=== PATIENT | male | born 1945 | race Caucasian/White ===

== ENCOUNTER 2017-11-06 08:37 | Observation (INO) ==
[2017-11-06] MEDS ORDERED: Ipratropium/Albuterol Neb 3 ML IH ONE (08:52)
[2017-11-06] MEDS ORDERED: predniSONE 20 MG TABLET PO ONE (08:52)
--- NOTE | 2017-11-06 08:55 | Emergency Department Note ---
Disposition Clinical Impression: Acute exacerbation of chronic obstructive airways disease Congestive heart failure Qualifiers: Heart failure type: unspecified Heart failure chronicity: acute Qualified Code( s): I50.9 - Heart failure, unspecified Disposition: Admitted As Inpatient Condition: Undetermined Forms: ED Satisfaction Letter Time of Disposition: 10:10 SOB HPI - General Chief Complaint: ED Shortness of Breath/Dyspnea Stated Complaint: MAC Time Seen by Provider: 11/06/17 08:43 Source: patient Mode of arrival: ambulatory Limitations: no limitations Nursing Notes Reviewed: Yes Vital Signs Reviewed: Yes - History of Present Illness 72-year-old male with history of COPD, hypertension, hyperlipidemia, arrives to the emergency department complaining of dyspnea over the past week. The patient has some associated wheezing. He has had an increase in use of inhalers and nebulizers. The patient states that he has been expressing some wheezing and a productive cough with yellow to white sputum. No hemoptysis. The patient denies any associated chest pain. The patient does have bilateral lower extremity edema without one being worse than the other. The patient denies any hemoptysis, unilateral leg swelling, recent surgeries or immobilizations, history of DVT or PE. The patient is able to speak in 3-5 word sentences. He is in mild respiratory distress. He denies any other complaints at this time. - Related Data Home Medications Medication Instructions Recorded Confirmed Albuterol Sulfate [Ventolin Hfa] 8 gm IH Q4H PRN 04/11/17 07/19/17 Aspirin 81 mg PO DAILY 04/11/17 07/19/17 Atorvastatin [Lipitor] 40 mg PO HS 04/11/17 07/19/17 Fluticasone/Salmeterol [Advair 2 puff IH BID 04/11/17 07/19/17 250-50 Diskus] Metoprolol Tartrate [Lopressor] 100 mg PO BID 04/11/17 07/19/17 Multivit-Min/FA/Lycopen/Lutein 1 each PO DAILY 04/11/17 07/19/17 [Centrum Silver Men Tablet] Plavix 75 mg PO DAILY 07/19/17 07/19/17 Allergies Allergy/AdvReac Type Severity Reaction Status Date / Time No Known Allergies Allergy Verified 11/06/17 08:41 All systems ED: reviewed and negative except as stated. Constitutional: Denies: fever, chills, weakness ENT ED: Denies: dysphagia Cardiovascular: Reports: dyspnea on exertion, edema. Denies: chest pain Respiratory: Reports: cough, dyspnea, wheezes, sputum production. Denies: hemoptysis Gastrointestinal: Denies: abdominal pain, nausea, vomiting Genitourinary: Denies: urgency, dysuria Musculoskeletal: Denies: back pain, neck pain Integumentary: Denies: rash Neurological: Denies: headache Past Medical History - Past Medical History Attestation: Yes The following information was validated with the patient. Source: patient, old records reviewed Medical history: Reports: COPD, coronary artery disease, hyperlipidemia, hypertension Surgical history: Reports: non-contributory Psychiatric history: Reports: no psych history - Social History Smoking Status: Former smoker Smokeless Tobacco Status: No Alcohol use: Reports: none Drug use: Reports: none Physical Exam - General Limitations: no limitations General appearance: alert, in distress (mild) - Head Head exam: atraumatic, normocephalic, normal inspection - Eye Eye exam: Present: normal appearance, PERRL, EOMI - ENT ENT exam: normal exam, normal oropharynx, mucous membranes moist - Neck Neck exam: Present: normal inspection, full ROM, trachea midline - Chest Chest inspection: Present: normal inspection, symmetric chest wall rise - Respiratory Respiratory exam: Present: respiratory distress (mild), wheezes (mild), other ( Coarse breath sounds.) - Cardiovascular Cardiovascular exam: Present: regular rate, normal rhythm, normal heart sounds - Abdominal Exam Abdominal exam: Present: soft, Non-Tender. Absent: tenderness, distention, guarding, rebound, rigidity - Extremities Exam Extremities exam: Present: normal inspection, full ROM, pedal edema (trace bilaterally). Absent: tenderness - Neurological Exam Neurological exam: Present: alert, oriented X3 - Skin Skin exam: Present: warm, dry, intact, normal color Course Vital Signs Temperature 98.3 F 11/06/17 08:40 Pulse Rate 75 11/06/17 08:40 Respiratory Rate 20 11/06/17 08:40 Blood Pressure 103/61 11/06/17 08:40 O2 Sat by Pulse Oximetry 92 11/06/17 08:40 Temperature 98.3 F 11/06/17 09:11 Pulse Rate 75 11/06/17 09:11 Respiratory Rate 19 11/06/17 09:20 Blood Pressure 103/61 11/06/17 09:11 O2 Sat by Pulse Oximetry 97 11/06/17 09:20 Oxygen Delivery Oxygen Delivery Room Air Shortness of Breath/Dyspnea - [facility] Narrative Medical decision making narrative: Patient's workup in the emergency department demonstrates findings consistent with COPD exacerbation. The patient is a mildly elevated BNP and an equivocal' s. He does have some pulmonary vascular congestion noted on chest x-ray. In addition the patient does have bilateral opacities consistent with possible pneumonia. He was given 500 mg azithromycin IV here in the emergency room as well as duo nebs and steroids. The patient's [id number] ultrasound revealed no acute process but examination was difficult to visualize the heart on echocardiogram secondary to body habitus. What was seen does not demonstrate global decreased motion. No obvious abnormalities noted. The patient was given 1 dose of 40 mg IV Lasix per recommendation from hospitalist upon admission. The patient was accepted to the hospitalist service, Dr. Urena. Patient made aware and agrees to plan. No further questions or concerns. - Lab Data Lab results reviewed: Yes I reviewed the patient's lab results. Result diagrams: 11/06/17 08:57 11/06/17 08:57 Lab Results 11/06/17 11/06/17 11/06/17 Range/Units 08:57 08:57 08:57 Hgb 12.2 L (12.9-16.9) g/dL Hct 36.3 L (37.5-50.1) % Plt Count 250 (140-400) K/mcL Sodium 137 (136-145) mEq/L Potassium 3.4 L (3.5-5.1) mEq/L Chloride 103 (98-107) mEq/L Carbon Dioxide 23 (23-29) mEq/L BUN 21 (8-23) mg/dL Creatinine 1.09 (0.70-1.30) mg/dL Est GFR ( Amer) > 60 (> 60) Est GFR (Non-Af Amer) > 60 (> 60) BUN/Creatinine Ratio 19 (6-26) Glucose 136 H (70-105) mg/dL Calculated Osmolality 289 (280-300) Calcium 8.7 (8.6-10.3) mg/dL Troponin I 0.03 (< 0.04) ng/mL B-Natriuretic Peptide 129 H (Less than 100) pg/mL - Radiology Data Radiology results reviewed: Yes I reviewed the patient's radiology results. Chest X-Ray 11/06/17 08:52 IMPRESSION: 1. Bilateral lower lobe airspace opacities, potentially pneumonia, aspiration, and/or atelectasis. 2. Pulmonary vascular congestion and/or chronic interstitial change. D/ / Didier Brown MD / Didier Brown MD Interpreting Provider: Didier Brown MD - EKG Data EKG attestation: Yes I reviewed and interpreted this EKG. EKG results narrative: Heart rate 75 beats for minute. Normal sinus rhythm. No ST elevation or ST depression noted. EKG is similar to EKG from 07/25/2004. No acute changes noted.
[2017-11-06 09:04] LABS: Hematocrit 36.3 % (37.5-50.1); Hemoglobin 12.2 g/dL (12.9-16.9); Platelet Count 250 K/mcL (140-400)
[2017-11-06 09:28] LABS: BUN/Creatinine Ratio 19 (6-26); Blood Urea Nitrogen 21 mg/dL (8-23); Calcium 8.7 mg/dL (8.6-10.3); Carbon Dioxide 23 mEq/L (23-29); Chloride 103 mEq/L (98-107); Glucose 136 mg/dL (70-105); Osmolality,Calculated 289 (280-300); Potassium 3.4 mEq/L (3.5-5.1); Sodium 137 mEq/L (136-145); eGFR For Non-African Americans > 60 (> 60)
[2017-11-06 09:29] LABS: Troponin I 0.03 ng/mL (< 0.04)
[2017-11-06] MEDS ORDERED: Furosemide 40 MG/4 ML VIAL IVP ONE (10:05)
[2017-11-06] MEDS ORDERED: Azithromycin 500 MG in D5% in Water 250 ML IVPB ONE (10:05)
[2017-11-06 10:34] LABS: Basophils % 0.3 %; Eosinophils # 0.3 K/mcL (0.0-0.6); Eosinophils % 2.5 %; Immature Granulocytes % 0.4 % (0-4); Mean Corpuscular HGB Conc 33.8 g/dL (31.6-35.5); Mean Corpuscular Hemoglobin 30.7 pg (28.0-33.3); Mean Corpuscular Volume 90.7 fL (83.0-100.0); Mean Platelet Volume 9.8 fL (9.4-12.4); Monocytes % 8.1 %; Neutrophils # 9.6 K/mcL (1.6-8.9); Red Blood Count 3.98 M/mcL (4.19-5.50); Red Cell Distribution Width 12.3 % (11.5-14.5); Segmented Neutrophils % 80.7 %
--- NOTE | 2017-11-06 10:49 | Emergency Department Note ---
Disposition Clinical Impression: Acute exacerbation of chronic obstructive airways disease Congestive heart failure Qualifiers: Heart failure type: unspecified Heart failure chronicity: acute Qualified Code( s): I50.9 - Heart failure, unspecified Disposition: Admitted As Inpatient Condition: Undetermined Referrals: Alfredo Salmon MD [Primary Care Provider] - General Adult HPI - General Chief complaint: ED Shortness of Breath/Dyspnea Stated complaint: MAC Time Seen by Provider: 11/06/17 08:43 Source: patient Mode of arrival: ambulatory Limitations: no limitations - History of Present Illness Pain Scale: 0 - Related Data Home Medications Medication Instructions Recorded Confirmed Albuterol Sulfate [Ventolin Hfa] 2 puff IH Q4H PRN 04/11/17 11/06/17 Aspirin 81 mg PO DAILY 04/11/17 11/06/17 Atorvastatin [Lipitor] 40 mg PO HS 04/11/17 11/06/17 Metoprolol Tartrate [Lopressor] 50 - 100 mg PO BID 04/11/17 11/06/17 Multivit-Min/FA/Lycopen/Lutein 1 each PO DAILY 04/11/17 11/06/17 [Centrum Silver Men Tablet] Allergies Allergy/AdvReac Type Severity Reaction Status Date / Time No Known Allergies Allergy Verified 11/06/17 08:41 Constitutional: Denies: fever, chills, weakness ENT ED: Denies: dysphagia Cardiovascular: Reports: dyspnea on exertion, edema. Denies: chest pain Respiratory: Reports: cough, dyspnea, wheezes, sputum production. Denies: hemoptysis Gastrointestinal: Denies: abdominal pain, nausea, vomiting Genitourinary: Denies: urgency, dysuria Musculoskeletal: Denies: back pain, neck pain Integumentary: Denies: rash Neurological: Denies: headache Past Medical History - Past Medical History Medical history: Reports: COPD, coronary artery disease, hyperlipidemia, hypertension Surgical history: Reports: non-contributory Psychiatric history: Reports: no psych history - Social History Smoking Status: Former smoker Smokeless Tobacco Status: No Alcohol use: Reports: none Drug use: Reports: none Physical Exam - General Limitations: no limitations General appearance: alert, in distress (mild) Course Vital Signs Temperature 98.3 F 11/06/17 08:40 Pulse Rate 75 11/06/17 08:40 Respiratory Rate 20 11/06/17 08:40 Blood Pressure 103/61 11/06/17 08:40 O2 Sat by Pulse Oximetry 92 11/06/17 08:40 Temperature 98.3 F 11/06/17 09:11 Pulse Rate 92 11/06/17 10:42 Respiratory Rate 21 11/06/17 10:42 Blood Pressure 136/53 11/06/17 10:42 O2 Sat by Pulse Oximetry 95 11/06/17 10:42 Oxygen Delivery Oxygen Delivery Nasal Cannula Medical Decision Making - Lab Data Result diagrams: 11/06/17 08:57 11/06/17 08:57 Lab Results 11/06/17 11/06/17 11/06/17 Range/Units 08:57 08:57 08:57 WBC 11.9 H (4.3-11.1) K/mcL RBC 3.98 L (4.19-5.50) M/mcL Hgb 12.2 L (12.9-16.9) g/dL Hct 36.3 L (37.5-50.1) % MCV 90.7 (83.0-100.0) fL MCH 30.7 (28.0-33.3) pg MCHC 33.8 (31.6-35.5) g/dL RDW 12.3 (11.5-14.5) % Plt Count 250 (140-400) K/mcL MPV 9.8 (9.4-12.4) fL Immature Gran % 0.4 (0-4) % Seg Neutrophils % 80.7 % Lymphocytes % 8.0 % Monocytes % 8.1 % Eosinophils % 2.5 % Basophils % 0.3 % Neutrophils # 9.6 H (1.6-8.9) K/mcL Lymphocytes # 1.0 (0.6-4.6) K/mcL Monocytes # 1.0 (0.0-1.3) K/mcL Eosinophils # 0.3 (0.0-0.6) K/mcL Basophils # 0.0 (0.0-0.2) K/mcL Sodium 137 (136-145) mEq/L Potassium 3.4 L (3.5-5.1) mEq/L Chloride 103 (98-107) mEq/L Carbon Dioxide 23 (23-29) mEq/L BUN 21 (8-23) mg/dL Creatinine 1.09 (0.70-1.30) mg/dL Est GFR ( Amer) > 60 (> 60) Est GFR (Non-Af Amer) > 60 (> 60) BUN/Creatinine Ratio 19 (6-26) Glucose 136 H (70-105) mg/dL Calculated Osmolality 289 (280-300) Calcium 8.7 (8.6-10.3) mg/dL Troponin I 0.03 (< 0.04) ng/mL B-Natriuretic Peptide 129 H (Less than 100) pg/mL Attestation Statement - Attestation Attestation: I examined this patient and my medical decision-making was reviewed with the Resident Physician. I agree with the documented findings, disposition and treatment plan as described except to the extent set forth below. Patient has a cough, wheezing resolved after administration of DuoNeb's. He has an equivocal evaluation for the possibility of heart failure. After DuoNeb' s, he has persistent bibasilar rales, has bibasilar infiltrates on his chest x- ray that could be edema. He has orthopnea, which is nonspecific. Has a nondiagnostic BNP. Does not have JVD, minimal if any hepatojugular reflux. I do not appreciate much in way of peripheral edema. He says he had heart failure once in the 1980s but has had no problems with it since. While I think the most likely source of his symptoms is a COPD exacerbation possibly secondary to mild pneumonia, I cannot rule out a contribution of what would essentially at this point be new onset heart failure. I was present and available for Dr. Lantigua's nondiagnostic point of care ultrasound. He will be admitted for further evaluation to include echocardiography.
--- NOTE | 2017-11-06 11:51 | Electrocardiograph Report ---
[place] [id number] Test Date: 2017-11-06 Pat Name: Jeffry Wetzel Department: Room: [facility] Gender: M Superintendent Operating: : 1945 Requested By: Bhavesh Urena Order Number: [id number] Reading MD: Carline Peace Measurements Intervals [place] Rate: 75 P: 63 ID: [id number] QRS: 64 QRSD: 89 T: 53 QT: 364 QTc: 407 Interpretive Statements Sinus rhythm Abnormal R-wave progression, early transition Electronically Signed On 11-06-2017 11:49:48 EDT by Carline Peace
[2017-11-06] MEDS ORDERED: Naloxone 0.4 MG/ML INJ IVP PRN (12:08)
[2017-11-06] MEDS ORDERED: Acetaminophen 325 MG TABLET PO PRN (12:08)
[2017-11-06] MEDS ORDERED: Ipratropium/Albuterol Neb 3 ML IH PRN (12:15)
--- NOTE | 2017-11-06 12:24 | Internal Med History&Physical ---
Date of Encounter: 11/06/17 Time of Encounter: 11:00 Internal Medicine - H&P: HPI Chief complaint: Cough and SOB Admitted From: Home Plans for Post Hospital Care: Home History of present illness: Mr. Wetzel is a 72 year old male presented to ER for cough and shortness of breath. Past medical history is significant for COPD, hypertension, CAD. Patient started to have shortness of breath and cough for several weeks. Symptoms getting worse gradually. The cough is productive, with whitish or yellowish sputum. Patient denies fever but complained of chills sometimes. Patient denies chest pain, he has mild nausea but no vomiting. Patient has generally exertional intolerance for about 1 year. He complaining of shortness of breath even going to bathroom. Patient cannot lay flat for sleeping and always sleep on recliner for several years. In the emergency room, chest x-ray shows infiltrates bilaterally and pulmonary vascular congestion. Patient was treated with DuoNeb, prednisone, azithromycin, and IV Lasix in the emergency room. His shortness of breath has improved after treatment. Past Med Surg Social Fam HX - Past Medical History Medical history: COPD, coronary artery disease, hyperlipidemia, hypertension Psychiatric history: no psych history - Past Surgical History Surgical History: non-contributory - Social History Smoking Status: Former smoker Smokeless Tobacco Status: No Alcohol use: none Drug use: none - Family History Mother History Unknown: Yes Internal Medicine - H&P: Meds Albuterol Sulfate [Ventolin Hfa] 2 puff IH Q4H PRN 04/11/17 [History] Aspirin 81 mg PO DAILY 04/11/17 [History] Atorvastatin [Lipitor] 40 mg PO HS 04/11/17 [History] Metoprolol Tartrate [Lopressor] 50 - 100 mg PO BID 04/11/17 [History] Multivit-Min/FA/Lycopen/Lutein [Centrum Silver Men Tablet] 1 each PO DAILY 04/11 [History] 3 Allergy/AdvReac Type Severity Reaction Status Date / Time No Known Allergies Allergy Verified 11/06/17 08:41 All Systems PM: A 10-system review of systems was performed and is negative for pertinent findings except as documented above in the HPI. - Constitutional Vitals: Temp Pulse Resp BP Pulse Ox 98.8 F 86 20 126/71 94 11/06/17 11:24 11/06/17 11:24 08/15/18 11:24 11/06/17 11:24 11/06/17 11:24 General appearance: Present: A&O X 3, no acute distress, answers questions appropriately - Head Head exam: Present: atraumatic, normocephalic - Eye Eye exam: Present: PERRL, conjuntiva pink, sclera anicteric Pupils: Present: PERRL - Neck Neck exam general surgery: Present: supple, trachea midline. Absent: lymphadenopathy - Respiratory Respiratory exam: Present: decreased breath sounds (Bilaterally), CTAB. Absent : accessory muscle use, rales, rhonchi, wheezes Additional comments: Coarse breath sounds bilaterally. - Cardiovascular Cardiovascular exam: Present: RRR, +S1, +S2. Absent: diastolic murmur, gallop, rubs, systolic murmur - GI/Abdominal GI/Abdominal exam: Present: normal bowel sounds, soft, no peritoneal signs. Absent: distended, tenderness - Extremities Exam Extremities exam: Present: warm, radial pulses palpable and symmetrical. Absent : calf tenderness, cyanotic, pedal edema - Neurological Exam Neurological exam: Present: CN II-XII intact, oriented X3, no focal deficits. Absent: pronater drift, facial droop, speech deficit - Skin Skin exam: Present: dry, intact Internal Med - H&P Results - Labs CBC & Chem 7: 11/06/17 08:57 11/06/17 08:57 - Assessment and plan (1) Community acquired pneumonia Current Visit: Yes Status: Acute Assessment and plan: Patient has cough, leukocytosis, chest x-ray shows bilateral opacity. Consider community acquired pneumonia. - We will treat patient with azithromycin and Rocephin - Follow sputum culture and mycoplasmas antibody - Symptomatic treatment. Qualifiers: Laterality: unspecified laterality Qualified Code(s): J18.9 - Pneumonia, unspecified organism (2) Hypertension Current Visit: Yes Status: Acute Assessment and plan: Continue home medications Qualifiers: Hypertension type: essential hypertension Qualified Code(s): I10 - Essential (primary) hypertension (3) CAD (coronary artery disease) Current Visit: Yes Status: Acute Assessment and plan: Patient had LHC in 2000, which shows 25-30% stenosis, no stent placed. Patient denies chest pain at this point. Continue home medications. Qualifiers: Coronary Disease-Associated Artery/Lesion type: [place] artery [place] vs. transplanted heart: [place] heart Associated angina: without angina Qualified Code(s): I25.10 - Atherosclerotic heart disease of [place] coronary artery without angina pectoris (4) DVT prophylaxis Current Visit: Yes Status: Acute Assessment and plan: Heparin subcutaneously (5) Acute exacerbation of chronic obstructive airways disease Current Visit: Yes Status: Acute Assessment and plan: Patient has increased cough, shortness of breath. History of COPD. Consider COPD exacerbation. - Continue antibiotic, steroid, and bronchodilator - Continue oxygen supportive treatment (6) Congestive heart failure Current Visit: Yes Status: Acute Assessment and plan: Patient has exertional intolerance. He has mild elevated BNP, however patient has morbid obesity, possibly falsely low. Chest x-ray shows pulmonary vascular congestion. Need to rule out CHF. - Place patient on fluid restriction, strict I and O, low-dose Lasix. - Check echocardiogram and adjust medication accordingly. Qualifiers: Heart failure type: unspecified Heart failure chronicity: unspecified Qualified Code(s): I50.9 - Heart failure, unspecified - Time Spent With Patient Total time spent is greater than 50% in coordination of care (as documented) at patient's floor/unit and/or counseling patient: 40 minutes Greater than 35 minutes
[2017-11-06] MEDS: cefTRIAXone 1,000 MG in Water for inj. (sterile) 20 ML 10 ML IVP SCH (15:01)
[2017-11-06] MEDS: Ipratropium/Albuterol Neb 3 ML IH SCH ×2 (15:36→22:28)
[2017-11-06] MEDS: *HR* Heparin 5,000 UNIT/ML VIAL SQ SCH (17:44)
[2017-11-06] MEDS ORDERED: Perflutren Lipid Microsphere 1.3 ML in 0.9 % Sodium Chloride 8.7 ML IVP ONE (20:51)
[2017-11-07] MEDS: Ipratropium/Albuterol Neb 3 ML IH SCH ×4 (03:39→22:49)
[2017-11-07] MEDS: *HR* Heparin 5,000 UNIT/ML VIAL SQ SCH ×2 (06:34→18:42)
[2017-11-07 06:51] LABS: Basophils % 0.1 %; Eosinophils % 0.1 %; Hematocrit 34.5 % (37.5-50.1); Hemoglobin 11.9 g/dL (12.9-16.9); Immature Granulocytes % 0.6 % (0-4); Lymphocytes # 1.2 K/mcL (0.6-4.6); Mean Corpuscular HGB Conc 34.5 g/dL (31.6-35.5); Mean Corpuscular Hemoglobin 31.1 pg (28.0-33.3); Mean Corpuscular Volume 90.1 fL (83.0-100.0); Mean Platelet Volume 9.6 fL (9.4-12.4); Monocytes # 1.1 K/mcL (0.0-1.3); Monocytes % 7.4 %; Neutrophils # 12.2 K/mcL (1.6-8.9); Platelet Count 280 K/mcL (140-400); Red Blood Count 3.83 M/mcL (4.19-5.50); Red Cell Distribution Width 12.3 % (11.5-14.5); Segmented Neutrophils % 83.8 %
[2017-11-07 07:01] LABS: BUN/Creatinine Ratio 26 (6-26); Blood Urea Nitrogen 32 mg/dL (8-23); Calcium 8.6 mg/dL (8.6-10.3); Carbon Dioxide 24 mEq/L (23-29); Chloride 104 mEq/L (98-107); Cholesterol 113 mg/dL (< 200); Glucose 154 mg/dL (70-105); HDL Cholesterol 38 mg/dL (40-59); LDL Cholesterol,Calculated 64 mg/dL (0-99); Osmolality,Calculated 298 (280-300); Potassium 3.1 mEq/L (3.5-5.1); Sodium 139 mEq/L (136-145); Triglycerides 56 mg/dL (< 150); eGFR For Non-African Americans 58 (> 60)
[2017-11-07] MEDS: Aspirin 81 MG TAB.CHEW PO SCH (10:31)
[2017-11-07] MEDS: Multivit/Ca/Min/Fe/FA 1 TAB TABLET PO SCH (10:31)
[2017-11-07] MEDS: predniSONE 20 MG TABLET PO SCH (10:31)
[2017-11-07] MEDS: cefTRIAXone 1,000 MG in Water for inj. (sterile) 20 ML 10 ML IVP SCH (10:32)
[2017-11-07] MEDS: Furosemide 20 MG/2 ML VIAL IVP SCH (10:32)
[2017-11-07] MEDS: Azithromycin 500 MG in D5% in Water 250 ML IVPB SCH (10:33)
--- NOTE | 2017-11-07 19:46 | Internal Med Progress Note ---
Hospitalist Progress Note - Encounter Date of Encounter: 11/07/17 Time of Encounter: 11:00 - Subjective Interval History: Patient with shortness of breath requiring supplemental oxygenation secondary to community acquired pneumonia with COPD exacerbation. - Exam Vitals: Temp Pulse Resp BP Pulse Ox 98.0 F 76 18 128/66 95 11/07/17 16:29 11/07/17 16:29 11/07/17 16:29 11/07/17 16:29 11/07/17 16:29 Exam: Gen.: Nonacute distress, alert and oriented 3 ENT: Mucosal membranes moist Respiratory: Lungs are clear to auscultation bilaterally without any wheezing rhonchi or rales Cardiovascular: Normal S1 and S2 regular rate rhythm no murmurs rubs or gallops Abdomen: Soft, nontender and nondistended with positive bowel sounds Extremities: No lower extremity edema Skin: Normal color - Assessment and Plan (1) Community acquired pneumonia Current Visit: Yes Status: Acute Assessment and Plan: Patient has cough, leukocytosis, chest x-ray shows bilateral opacity. Will continue azithromycin and Rocephin (2) Acute exacerbation of chronic obstructive airways disease Current Visit: Yes Status: Acute Assessment and Plan: Patient has increased cough, shortness of breath. Continue antibiotic, steroid, and bronchodilator Continue oxygen supplementation to wean O2 as tolerated (3) Hypertension Current Visit: Yes Status: Acute Assessment and Plan: Continue home medications (4) CAD (coronary artery disease) Current Visit: Yes Status: Acute Assessment and Plan: Patient had LHC in 2000, which shows 25-30% stenosis, no stent placed. Continue home medications. (5) DVT prophylaxis Current Visit: Yes Status: Acute Assessment and Plan: Heparin subcutaneously - Time Spent with Patient Total time spent is greater than 50% in coordination of care (as documented) at patient's floor/unit and/or counseling patient: Internal Medicine: Result - Labs CBC & Chem 7: 11/07/17 05:53 11/07/17 05:53 Labs: Short CBC 11/07/17 Range/Units 05:53 WBC 14.5 H (4.3-11.1) K/mcL Hgb 11.9 L (12.9-16.9) g/dL Hct 34.5 L (37.5-50.1) % Plt Count 280 (140-400) K/mcL Neutrophils # 12.2 H (1.6-8.9) K/mcL BMP 11/07/17 05:53 Sodium 139 Potassium 3.1 L Chloride 104 Carbon Dioxide 24 BUN 32 H Creatinine 1.23 Glucose 154 H Calcium 8.6 - Impressions Impressions Echocardiogram 11/06/17 12:16 Impressions: LVEF 60%. Mild left ventricular diastolic dysfunction. Definity echo contrast was used. RV is not well visualized. No significant valvular dysfunction. No pulmonary hypertension. Left Ventricular Wall Motion: Rest Echo Findings All wall segments showed normal motion. Findings: Study Quality * Technically challenging due to body habitus. ECG Findings * Normal sinus rhythm. Left Ventricle * LVEF 60%. * Mild left ventricular diastolic dysfunction. * Definity echo contrast was used. * Normal appearing LV chamber size and wall thickness. Right Ventricle * RV is not well visualized. Left Atrium * Mildly dilated left atrium. Right Atrium * Normal right atrial size. Aortic Valve * No aortic regurgitation. * Aortic valve not well visualized. * No aortic stenosis. Mitral Valve * No mitral regurgitation. * Normal mitral valve structure. * No mitral stenosis. Tricuspid Valve * Tricuspid valve not well visualized. * Trace tricuspid regurgitation. * Estimated RA pressure is 3 mmHg. * Estimated RVSP is 13 mmHg. * No pulmonary hypertension. Pulmonic Valve * Pulmonic valve is not well visualized. * No pulmonic stenosis. * No pulmonic regurgitation. Pulmonary Artery * Pulmonary artery not well visualized. Aorta * Not well visualized. Pericardium * There is no pericardial effusion present. Interatrial Septum * No evidence of PFO by color Doppler. IVC * Normal IVC dimensions and inspiratory collapse. Consult Discharge Plan - Plan Referrals: Alfredo Salmon MD [Primary Care Provider] - (1) Community acquired pneumonia Qualifiers: Laterality: unspecified laterality Qualified Code(s): J18.9 - Pneumonia, unspecified organism (3) Hypertension Qualifiers: Hypertension type: essential hypertension Qualified Code(s): I10 - Essential (primary) hypertension (4) CAD (coronary artery disease) Qualifiers: Coronary Disease-Associated Artery/Lesion type: [place] artery [place] vs. transplanted heart: [place] heart Associated angina: without angina Qualified Code(s): I25.10 - Atherosclerotic heart disease of [place] coronary artery without angina pectoris
[2017-11-08] MEDS: Ipratropium/Albuterol Neb 3 ML IH SCH ×4 (04:31→21:45)
[2017-11-08] MEDS: *HR* Heparin 5,000 UNIT/ML VIAL SQ SCH ×2 (05:18→17:59)
[2017-11-08] MEDS: Aspirin 81 MG TAB.CHEW PO SCH (08:42)
[2017-11-08] MEDS: predniSONE 20 MG TABLET PO SCH (08:42)
[2017-11-08] MEDS: Multivit/Ca/Min/Fe/FA 1 TAB TABLET PO SCH (08:42)
[2017-11-08] MEDS: Furosemide 20 MG/2 ML VIAL IVP SCH (08:42)
[2017-11-08] MEDS: cefTRIAXone 1,000 MG in Water for inj. (sterile) 20 ML 10 ML IVP SCH (08:43)
[2017-11-08] MEDS: Azithromycin 500 MG in D5% in Water 250 ML IVPB SCH (08:44)
[2017-11-08 10:28] LABS: Basophils % 0.2 %; Eosinophils # 0.1 K/mcL (0.0-0.6); Eosinophils % 0.4 %; Hematocrit 34.5 % (37.5-50.1); Hemoglobin 11.6 g/dL (12.9-16.9); Immature Granulocytes % 0.6 % (0-4); Lymphocytes # 1.2 K/mcL (0.6-4.6); Lymphocytes % 7.2 %; Mean Corpuscular HGB Conc 33.6 g/dL (31.6-35.5); Mean Corpuscular Hemoglobin 30.3 pg (28.0-33.3); Mean Corpuscular Volume 90.1 fL (83.0-100.0); Mean Platelet Volume 9.6 fL (9.4-12.4); Monocytes # 0.9 K/mcL (0.0-1.3); Monocytes % 5.4 %; Neutrophils # 14.1 K/mcL (1.6-8.9); Platelet Count 317 K/mcL (140-400); Red Blood Count 3.83 M/mcL (4.19-5.50); Red Cell Distribution Width 12.5 % (11.5-14.5); Segmented Neutrophils % 86.2 %
[2017-11-08 10:51] LABS: BUN/Creatinine Ratio 29 (6-26); Blood Urea Nitrogen 33 mg/dL (8-23); Calcium 9.1 mg/dL (8.6-10.3); Carbon Dioxide 25 mEq/L (23-29); Chloride 105 mEq/L (98-107); Glucose 205 mg/dL (70-105); Osmolality,Calculated 307 (280-300); Potassium 3.5 mEq/L (3.5-5.1); Sodium 142 mEq/L (136-145); eGFR For Non-African Americans > 60 (> 60)
--- NOTE | 2017-11-08 18:28 | Internal Med Progress Note ---
Hospitalist Progress Note - Encounter Date of Encounter: 11/08/17 Time of Encounter: 11:00 - Subjective Interval History: Patient still requiring supplemental oxygenation this morning due to hypoxia secondary to pneumonia/COPD exacerbation - Exam Vitals: Temp Pulse Resp BP Pulse Ox 99.0 F 79 18 123/76 95 11/08/17 15:03 11/08/17 15:03 11/08/17 16:56 11/08/17 15:03 11/08/17 16:56 Exam: Gen.: Nonacute distress, alert and oriented 3 ENT: Mucosal membranes moist Respiratory: Lungs are clear to auscultation bilaterally without any wheezing rhonchi or rales Cardiovascular: Normal S1 and S2 regular rate rhythm no murmurs rubs or gallops Abdomen: Soft, nontender and nondistended with positive bowel sounds Extremities: No lower extremity edema Skin: Normal color - Assessment and Plan (1) Community acquired pneumonia Current Visit: Yes Status: Acute Assessment and Plan: Patient has cough, leukocytosis, chest x-ray shows bilateral opacity. Will continue azithromycin and Rocephin (2) Acute exacerbation of chronic obstructive airways disease Current Visit: Yes Status: Acute Assessment and Plan: Patient has increased cough, shortness of breath. Continue antibiotic, steroid, and bronchodilator Continue oxygen supplementation to wean O2 as tolerated (3) Hypertension Current Visit: Yes Status: Acute Assessment and Plan: Continue home medications (4) CAD (coronary artery disease) Current Visit: Yes Status: Acute Assessment and Plan: Patient had LHC in 2000, which shows 25-30% stenosis, no stent placed. Continue home medications. (5) DVT prophylaxis Current Visit: Yes Status: Acute Assessment and Plan: Heparin subcutaneously - Time Spent with Patient Total time spent is greater than 50% in coordination of care (as documented) at patient's floor/unit and/or counseling patient: Internal Medicine: Result - Labs CBC & Chem 7: 11/08/17 09:54 11/08/17 09:54 Labs: Short CBC 11/08/17 Range/Units 09:54 WBC 16.3 H (4.3-11.1) K/mcL Hgb 11.6 L (12.9-16.9) g/dL Hct 34.5 L (37.5-50.1) % Plt Count 317 (140-400) K/mcL Neutrophils # 14.1 H (1.6-8.9) K/mcL [facility] 11/08/17 09:54 Sodium 142 Potassium 3.5 Chloride 105 Carbon Dioxide 25 BUN 33 H Creatinine 1.14 Glucose 205 H Calcium 9.1 Consult Discharge Plan - Plan Referrals: Alfredo Salmon MD [Primary Care Provider] - (1) Community acquired pneumonia Qualifiers: Laterality: unspecified laterality Qualified Code(s): J18.9 - Pneumonia, unspecified organism (3) Hypertension Qualifiers: Hypertension type: essential hypertension Qualified Code(s): I10 - Essential (primary) hypertension (4) CAD (coronary artery disease) Qualifiers: Coronary Disease-Associated Artery/Lesion type: [place] artery [place] vs. transplanted heart: [place] heart Associated angina: without angina Qualified Code(s): I25.10 - Atherosclerotic heart disease of [place] coronary artery without angina pectoris
[2017-11-09] MEDS: Ipratropium/Albuterol Neb 3 ML IH SCH ×3 (04:22→16:07)
[2017-11-09] MEDS: *HR* Heparin 5,000 UNIT/ML VIAL SQ SCH (05:47)
[2017-11-09 06:37] LABS: ABG Base Excess 1 mEq/L (-2 to 3); ABG HCO3 25 mEq/L (21-27); ABG Oxygen Saturation 63 % (95-98); ABG PCO2 36 mmHg (35-45); ABG PH 7.45 pH Units (7.32-7.45); ABG PO2 31 mmHg (85-104); ABG TCO2 26 mEq/L (20-26)
[2017-11-09 06:41] LABS: ABG Base Excess 2 mEq/L (-2 to 3); ABG HCO3 26 mEq/L (21-27); ABG Oxygen Saturation 92 % (95-98); ABG PCO2 35 mmHg (35-45); ABG PH 7.47 pH Units (7.32-7.45); ABG PO2 58 mmHg (85-104); ABG TCO2 27 mEq/L (20-26)
[2017-11-09] MEDS: Azithromycin 500 MG in D5% in Water 250 ML IVPB SCH (09:03)
[2017-11-09] MEDS: cefTRIAXone 1,000 MG in Water for inj. (sterile) 20 ML 10 ML IVP SCH (09:03)
[2017-11-09] MEDS: predniSONE 20 MG TABLET PO SCH (09:03)
[2017-11-09] MEDS: Multivit/Ca/Min/Fe/FA 1 TAB TABLET PO SCH (09:03)
[2017-11-09] MEDS: Furosemide 20 MG/2 ML VIAL IVP SCH (09:03)
[2017-11-09] MEDS: Aspirin 81 MG TAB.CHEW PO SCH (09:03)
[2017-11-09 10:34] LABS: Basophils # 0.1 K/mcL (0.0-0.2); Basophils % 0.4 %; Eosinophils # 0.1 K/mcL (0.0-0.6); Eosinophils % 0.9 %; Hematocrit 39.4 % (37.5-50.1); Immature Granulocytes % 1.1 % (0-4); Lymphocytes # 1.4 K/mcL (0.6-4.6); Lymphocytes % 9.9 %; Mean Corpuscular Hemoglobin 30.4 pg (28.0-33.3); Mean Corpuscular Volume 92.1 fL (83.0-100.0); Mean Platelet Volume 9.7 fL (9.4-12.4); Monocytes # 0.7 K/mcL (0.0-1.3); Monocytes % 5.1 %; Neutrophils # 11.6 K/mcL (1.6-8.9); Platelet Count 310 K/mcL (140-400); Red Blood Count 4.28 M/mcL (4.19-5.50); Red Cell Distribution Width 12.4 % (11.5-14.5); Segmented Neutrophils % 82.6 %
[2017-11-09 10:53] LABS: BUN/Creatinine Ratio 28 (6-26); Blood Urea Nitrogen 31 mg/dL (8-23); Calcium 8.9 mg/dL (8.6-10.3); Carbon Dioxide 21 mEq/L (23-29); Chloride 106 mEq/L (98-107); Glucose 189 mg/dL (70-105); Osmolality,Calculated 304 (280-300); Potassium 3.5 mEq/L (3.5-5.1); Sodium 141 mEq/L (136-145); eGFR For Non-African Americans > 60 (> 60)
[2017-11-09 11:08] VITALS: BP 106/70
--- NOTE | 2017-11-09 13:46 | Discharge Summary ---
Orders not resulted at time of discharge: Pending orders 11/06/17 14:50 Culture,Sputum with Gram Stain [RM] Stat 11/07/17 05:53 Mycoplasma pneumoniae IgG IgM AM 0400 Date of Encounter: 11/09/17 Time of Encounter: 11:00 - Discharge Diagnosis (1) Community acquired pneumonia Priority: Primary Status: Acute Qualifiers: Laterality: unspecified laterality Qualified Code(s): J18.9 - Pneumonia, unspecified organism (2) Acute exacerbation of chronic obstructive airways disease Priority: Primary Status: Acute (3) Hypertension Priority: Secondary Status: Acute Qualifiers: Hypertension type: essential hypertension Qualified Code(s): I10 - Essential (primary) hypertension (4) CAD (coronary artery disease) Priority: Secondary Status: Acute Qualifiers: Coronary Disease-Associated Artery/Lesion type: [place] artery [place] vs. transplanted heart: [place] heart Associated angina: without angina Qualified Code(s): I25.10 - Atherosclerotic heart disease of [place] coronary artery without angina pectoris Hospital course: Patient is a 72-year-old male with past medical history significant for COPD hypertension and coronary artery disease who presented to the ER on 11/06/17 due to shortness of breath. During patients hospital stay he was treated for community-acquired pneumonia with IV ceftriaxone and IV azithromycin in addition to prednisone. Patient also had acute hypoxic respiratory failure which resolved as he was able to be weaned off supplemental oxygenation. In addition, patient was found to have sputum culture positive for group C strep and will be discharged to complete a 3 day course of Levaquin for CAP and a 10 day course of penicillin or streptococcus group C. - Time Spent with Patient Total time spent providing and/or coordinating discharge services: - Discharge Medications Prescriptions: Levofloxacin [Levaquin] 750 mg PO DAILY 3 Days #3 tablet predniSONE [PredniSONE] 40 mg PO DAILY 5 Days #10 tablet Home Medications: Albuterol Sulfate [Ventolin Hfa] 2 puff IH Q4H PRN 04/11/17 [History] Aspirin 81 mg PO DAILY 04/11/17 [History] Atorvastatin [Lipitor] 40 mg PO HS 04/11/17 [History] Metoprolol Tartrate [Lopressor] 50 - 100 mg PO BID 04/11/17 [History] Multivit-Min/FA/Lycopen/Lutein [Centrum Silver Men Tablet] 1 each PO DAILY 04/11 [History] Losartan-Hctz 50-12.5 mg Tab mg PO DAILY 11/06/17 [History] Plavix 75 mg PO DAILY 11/06/17 [History] Levofloxacin [Levaquin] 750 mg PO DAILY 3 Days #3 tablet 11/09/17 [Rx] predniSONE [PredniSONE] 40 mg PO DAILY 5 Days #10 tablet 11/09/17 [Rx] Allergies/Adverse Reactions: 3 Allergy/AdvReac Type Severity Reaction Status Date / Time No Known Allergies Allergy Verified 11/06/17 08:41 Date of admission: 11/06/17 10:27 Primary care physician: Alfredo Salmon MD - Constitutional Vitals: Temp Pulse Resp BP Pulse Ox 98.1 F 80 16 106/70 91 11/09/17 11:06 11/09/17 11:06 11/09/17 11:06 11/09/17 11:06 11/09/17 11:06 General appearance: Present: A&O X 3, no acute distress, answers questions appropriately - Respiratory Respiratory exam: Present: CTAB. Absent: accessory muscle use, rales, rhonchi, wheezes - Cardiovascular Cardiovascular exam: Present: RRR, +S1, +S2. Absent: diastolic murmur, gallop, rubs, systolic murmur - Patient Status Disposition: Home, Self-Care Condition: Undetermined - Discharge Instructions Instructions: Heart Failure (DC), Chronic Obstructive Pulmonary Disease (DC), Pneumonia (DC) Follow Up With: Alfredo Salmon MD [Primary Care Provider] - Forms: ED Satisfaction Letter
[2017-11-10] MEDS ORDERED: Azithromycin 250 MG TABLET PO SCH (09:00)
[2017-11-11 08:55] LABS: Mycoplasma pneumoniae IgG 0.68 U/L (<=0.09)
== END 2017-11-09 16:14 | disposition home or self-care (01) ==
LOC: EMEROOARM 08:37 → 3NENU 08:37 → SUATTDRO 10:27 → 3NENU 11:02
PROVIDERS: ADMIT Internal Medicine; ATTEND Hospitalist